=== PATIENT | female | born 1985 | race Caucasian/White ===

== ENCOUNTER → 2019-07-07 | Outpatient (CLI) | payer OTHER | LOC: LABNPT 15:45 | PROVIDERS: ATTEND Family Medicine | DX: N30.01 Acute cystitis with hematuria (principal) ==

== ENCOUNTER → 2019-07-07 | Outpatient (CLI) | payer OTHER | LOC: LABNPT 16:06 | PROVIDERS: ATTEND Family Medicine | DX: N30.01 Acute cystitis with hematuria (principal) | CPT/HCPCS: 87077; 87088; 87186 ==

== ENCOUNTER → 2019-11-11 | Outpatient (CLI) | payer OTHER ==
[2019-11-11 12:41] LABS: MEAN CORPUSCULAR HEMOGLOBIN 33 PG (25-34); WHITE BLOOD COUNT 10.9 10^3/uL (4.3-11.0)
[2019-11-11 12:42] LABS: BASOPHILS # (AUTO) 0.1 10^3/uL (0.0-0.1); BASOPHILS % (AUTO) 1 % (0-10); EOSINOPHILS # (AUTO) 0.6 10^3/uL (0.0-0.3); EOSINOPHILS % (AUTO) 6 % (0-10); HEMATOCRIT 40 % (35-52); LYMPHOCYTES # (AUTO) 3.6 X 10^3 (1.0-4.0); LYMPHOCYTES % (AUTO) 33 % (12-44); MEAN CORPUSCULAR HGB CONC 35 G/DL (32-36); MEAN CORPUSCULAR VOLUME 94 FL (80-99); MEAN PLATELET VOLUME 9.5 FL (7.4-10.4); MONOCYTES # (AUTO) 0.5 X 10^3 (0.0-1.0); MONOCYTES % (AUTO) 5 % (0-12); NEUTROPHILS # (AUTO) 6.1 X 10^3 (1.8-7.8); NEUTROPHILS % (AUTO) 56 % (42-75); PLATELET COUNT 322 10^3/uL (130-400)
--- NOTE | 2019-11-11 12:53 | Diagnostic Imaging Report ---
INDICATION: COUGH COMPARISON: None. FINDINGS: Frontal and lateral views of the chest demonstrate normal heart size and pulmonary vascularity. The lungs are clear. There are no signs of infiltrate, pleural effusions or pneumothoraces. The visualized osseous structures show no acute abnormalities. IMPRESSION: 1. No acute process. No signs of infiltrates, effusions or pneumothoraces. Dictated by: Dictated on workstation # [id number]
== END ==
LOC: LAB FS 11:51
PROVIDERS: ATTEND Family Medicine
DX: R05 Cough (principal); Z20.828 Contact with and (suspected) exposure to other viral communicable diseases
CPT/HCPCS: 71046; 85025; U0002; 36415; 87635

== ENCOUNTER → 2020-01-05 | Outpatient (CLI) | payer OTHER ==
[2020-01-05 11:37] LABS: ALANINE AMINOTRANSFERASE 18 U/L (0-55); ALBUMIN 4.4 GM/DL (3.2-4.5); ALKALINE PHOSPHATASE 65 U/L (40-136); BILIRUBIN,TOTAL 0.3 MG/DL (0.1-1.0); BUN/CREATININE RATIO 11; CALCIUM 9.2 MG/DL (8.5-10.1); CARBON DIOXIDE 23 MMOL/L (21-32); CHLORIDE 106 MMOL/L (98-107); CREATININE SERUM 0.61 MG/DL (0.60-1.30); GFR ESTIMATED > 60; GLUCOSE 92 MG/DL (70-105); POTASSIUM 3.9 MMOL/L (3.6-5.0); SODIUM 140 MMOL/L (135-145); TOTAL PROTEIN 6.9 GM/DL (6.4-8.2)
[2020-01-05 11:38] LABS: HEMOGLOBIN 14.7 G/DL (11.5-16.0); MEAN PLATELET VOLUME 9.5 FL (7.4-10.4); WHITE BLOOD COUNT 10.8 10^3/uL (4.3-11.0)
== END ==
LOC: LAB FS 09:17
PROVIDERS: ATTEND Family Medicine
DX: Z00.00 Encounter for general adult medical examination without abnormal findings (principal)
CPT/HCPCS: 36415; 80053; 82607; 84443; 85027

== ENCOUNTER → 2020-05-29 | Outpatient (CLI) | payer OTHER ==
--- NOTE | 2020-05-29 12:03 | Diagnostic Imaging Report ---
INDICATION: Right foot at 1049h. INDICATION: Foot pain 3 views were obtained. There are no prior studies available for comparison. There is no fracture, dislocation or acute bony abnormality evident. The Lisfranc joint is well maintained. There is a prominent calcaneal spur. Soft tissues are unremarkable. IMPRESSION: There is no evidence for an acute bony abnormality. Dictated on workstation # [id number]
== END ==
LOC: RAD FS 10:31
PROVIDERS: ATTEND Family Medicine
DX: M79.671 Pain in right foot (principal)
CPT/HCPCS: 73630

== ENCOUNTER → 2021-01-02 | Outpatient (CLI) | payer OTHER ==
--- NOTE | 2021-01-02 11:01 | Diagnostic Imaging Report ---
Indication: Abdominal pain A supine view of the abdomen does not show the diaphragm. The bowel gas pattern is within normal limits. No mass or calculus is seen. There are changes of prior cholecystectomy. There is no bony abnormality. IMPRESSION: No acute abnormality is seen. Dictated by: Dictated on workstation # [id number]
[2021-01-02 13:00] LABS: BASOPHILS % (AUTO) 1 % (0-10); EOSINOPHILS % (AUTO) 7 % (0-10); HEMATOCRIT 39 % (35-52); HEMOGLOBIN 13.9 g/dL (11.5-16.0); LYMPHOCYTES % (AUTO) 32 % (12-44); MEAN CORPUSCULAR HEMOGLOBIN 33 pg (25-34); MEAN CORPUSCULAR HGB CONC 35 g/dL (32-36); MEAN CORPUSCULAR VOLUME 94 fL (80-99); MEAN PLATELET VOLUME 9.3 fL (9.0-12.2); MONOCYTES % (AUTO) 6 % (0-12); NEUTROPHILS % (AUTO) 54 % (42-75); PLATELET COUNT 346 10^3/uL (130-400); WHITE BLOOD COUNT 13.4 10^3/uL (4.3-11.0)
[2021-01-02 13:01] LABS: BASOPHILS # (AUTO) 0.1 10^3/uL (0.0-0.1); LYMPHOCYTES # (AUTO) 4.3 X 10^3 (1.0-4.0); MONOCYTES # (AUTO) 0.7 X 10^3 (0.0-1.0); NEUTROPHILS # (AUTO) 7.2 X 10^3 (1.8-7.8)
[2021-01-02 13:02] LABS: BILIRUBIN,TOTAL 0.4 MG/DL (0.1-1.0); CALCIUM 9.2 MG/DL (8.5-10.1); CREATININE SERUM 0.56 MG/DL (0.60-1.30); ERYTHROCYTE SEDIMENTATION RATE 6 MM/HR (0-20)
[2021-01-02 13:03] LABS: ALBUMIN 4.3 GM/DL (3.2-4.5); TOTAL PROTEIN 6.9 GM/DL (6.4-8.2)
== END ==
LOC: RAD FS 10:31
PROVIDERS: ATTEND Registered Nurse Emergency
DX: R53.83 Other fatigue (principal); M25.50 Pain in unspecified joint; R10.9 Unspecified abdominal pain; Z90.49 Acquired absence of other specified parts of digestive tract
CPT/HCPCS: 36415; 74018; 80053; 82607; 84443; 85025; 85652; 86038; 86039; 86225

== ENCOUNTER → 2021-05-28 | Outpatient (CLI) | payer OTHER ==
[~2021-05-28] MED LIST: CATHETER FLUSH 10 ML SYR IV PRN; HOLD METFORMIN - RECEIVED CONTRAST 20 ML VIAL IV SCH; IOHEXOL 350 MG/ML 100 ML (OMNIPAQUE 350) VIAL IV ONE; NS 100 ML (IVPB) BAG IV ONE
[2021-05-28 12:29] LABS: BASOPHILS # (AUTO) 0.1 10^3/uL (0.0-0.1); BASOPHILS % (AUTO) 1 % (0-10); EOSINOPHILS % (AUTO) 0 % (0-10); HEMATOCRIT 41 % (35-52); HEMOGLOBIN 14.3 g/dL (11.5-16.0); LYMPHOCYTES # (AUTO) 3.7 10^3/uL (1.0-4.0); LYMPHOCYTES % (AUTO) 27 % (12-44); MEAN CORPUSCULAR HEMOGLOBIN 33 pg (25-34); MEAN CORPUSCULAR HGB CONC 35 g/dL (32-36); MEAN CORPUSCULAR VOLUME 94 fL (80-99); MEAN PLATELET VOLUME 9.1 fL (9.0-12.2); MONOCYTES # (AUTO) 0.9 10^3/uL (0.0-1.0); MONOCYTES % (AUTO) 6 % (0-12); NEUTROPHILS # (AUTO) 9.1 10^3/uL (1.8-7.8); NEUTROPHILS % (AUTO) 66 % (42-75); PLATELET COUNT 303 10^3/uL (130-400); WHITE BLOOD COUNT 13.8 10^3/uL (4.3-11.0)
[2021-05-28 12:52] LABS: ALBUMIN 4.4 GM/DL (3.2-4.5); BILIRUBIN,TOTAL 0.3 MG/DL (0.1-1.0); CREATININE SERUM 0.63 MG/DL (0.60-1.30); TOTAL PROTEIN 6.9 GM/DL (6.4-8.2)
--- NOTE | 2021-05-28 13:03 | Diagnostic Imaging Report ---
PROCEDURE: CT abdomen and pelvis with contrast. TECHNIQUE: Multiple contiguous axial images were obtained through the abdomen and pelvis after administration of intravenous contrast. Auto Exposure Controls were utilized during the CT exam to meet ALARA standards for radiation dose reduction. All CT scans use one or more of the following dose optimizing techniques: automated exposure control, MA and/or KvP adjustment based on patient size and exam type or iterative reconstruction. INDICATION: Right lower quadrant abdominal pain There is mild low-density throughout the liver indicating steatosis. Gallbladder surgically absent without evidence of biliary ductal dilatation. There is no evidence of pancreatic, adrenal gland or splenic abnormality. There is mild hiatal hernia. Kidneys are unremarkable in appearance. There is no free fluid in the abdomen or pelvis. The appendix has a normal appearance. There is no organized fluid collection or focal inflammation. The uterus is absent with mildly prominent cyst noted in the left ovary. Urinary bladder is opacified but otherwise unremarkable. IMPRESSION: Hepatic steatosis and mild hiatal hernia. The appendix has a normal appearance and no focal inflammation is identified in the abdomen or pelvis. Dictated by: Dictated on workstation # [id number]
== END ==
LOC: RAD FS 12:06
PROVIDERS: ATTEND Family Medicine
DX: K76.0 Fatty (change of) liver, not elsewhere classified (principal); K44.9 Diaphragmatic hernia without obstruction or gangrene
CPT/HCPCS: 36415; 74177; 80053; 83690; 85025; Q9967

== ENCOUNTER → 2022-10-03 | Outpatient (CLI) | payer OTHER ==
[2022-10-03 11:10] LABS: BASOPHILS # (AUTO) 0.1 10^3/uL (0.0-0.1); BASOPHILS % (AUTO) 1 % (0-10); EOSINOPHILS % (AUTO) 0 % (0-10); HEMATOCRIT 41 % (35-52); HEMOGLOBIN 14.2 g/dL (11.5-16.0); LYMPHOCYTES # (AUTO) 3.8 10^3/uL (1.0-4.0); LYMPHOCYTES % (AUTO) 31 % (12-44); MEAN CORPUSCULAR HEMOGLOBIN 32 pg (25-34); MEAN CORPUSCULAR HGB CONC 34 g/dL (32-36); MEAN CORPUSCULAR VOLUME 93 fL (80-99); MEAN PLATELET VOLUME 8.8 fL (9.0-12.2); MONOCYTES # (AUTO) 0.7 10^3/uL (0.0-1.0); MONOCYTES % (AUTO) 6 % (0-12); NEUTROPHILS # (AUTO) 7.4 10^3/uL (1.8-7.8); NEUTROPHILS % (AUTO) 62 % (42-75); PLATELET COUNT 330 10^3/uL (130-400)
[2022-10-03 11:30] LABS: ALBUMIN 4.5 GM/DL (3.2-4.5); BILIRUBIN,TOTAL 0.3 MG/DL (0.1-1.0); CALCIUM 9.1 MG/DL (8.5-10.1); CREATININE SERUM 0.67 MG/DL (0.60-1.30); TOTAL PROTEIN 6.9 GM/DL (6.4-8.2)
--- NOTE | 2022-10-03 13:14 | Diagnostic Imaging Report ---
EXAMINATION: CT abdomen and pelvis with intravenous contrast. TECHNIQUE: Multiple contiguous axial images were obtained through the abdomen and pelvis after the uneventful administration of intravenous contrast. All CT scans use one or more of the following dose optimizing techniques: automated exposure control, MA and/or KvP adjustment based on patient size and exam type or iterative reconstruction. HISTORY: RLQ PAIN COMPARISON: None available. FINDINGS: Lung bases: The lung bases are clear. Solid organs: The liver is normal without focal lesion. The gallbladder is surgically absent. There is no biliary ductal dilation. Pancreas is normal. Spleen is normal. Adrenal glands are normal. The kidneys are normal without hydronephrosis. Bowel: The stomach and small bowel are normal without obstruction. The colon is normal. The appendix is normal. Peritoneum: There is no intraperitoneal free fluid or free air. No suspicious lymphadenopathy. Vasculature: Normal without aneurysm. Musculoskeletal: No suspicious osseous lesion or compression fracture. Pelvis: The uterus is surgically absent. There is a left ovarian cyst measuring 2.4 cm. The urinary bladder is normal. IMPRESSION: 1. No acute abnormality in the abdomen or pelvis. Dictated by: Dictated on workstation # [id number]
== END ==
LOC: LAB FS 10:55
PROVIDERS: ATTEND Family Medicine
DX: R10.823 Right lower quadrant rebound abdominal tenderness (principal)
CPT/HCPCS: 36415; 74177; 80053; 85025; Q9967